=== PATIENT | female | born 1990 | race Caucasian/White ===

== ENCOUNTER → 2024-07-29 | Outpatient (CLI) | payer MEDICARE ==
[~2024-07-29] MED LIST: ARIP1TAB4 PO; BUSP5TA PO; ERGO500029 PO; FLUO-290 PO; HYDR-643 PO; OMEP-173 PO; SERT50TA29 PO
[2024-07-29 18:24] LABS: BASO # 0.1 10^3/uL (0.0-0.2); BASO % 1.2 % (0.0-1.0); EOS # 0.1 10^3/uL (0.0-0.5); EOS % 1.4 % (0.0-3.0); HEMATOCRIT 37.9 % (36.0-47.0); HEMOGLOBIN 12.6 g/dl (12.0-15.5); LYMPH # 1.8 10^3/uL (1.5-5.0); LYMPH % 23.1 % (24.0-44.0); MEAN CORPUSCULAR HEMOGLOBIN 28.7 pg (27.0-33.0); MEAN CORPUSCULAR HGB CONC 33.2 g/dl (32.0-36.5); MEAN CORPUSCULAR VOLUME 86.3 fl (80.0-96.0); MONO # 0.5 10^3/uL (0.0-0.8); MONO % 6.5 % (2.0-8.0); NEUTROPHILS # 5.1 10^3/uL (1.5-8.5); NEUTROPHILS % 67.4 % (36.0-66.0); PLATELET COUNT, AUTOMATED 356 10^3/uL (150-450); RED BLOOD COUNT 4.39 10^6/uL (4.00-5.40); WHITE BLOOD COUNT 7.6 10^3/uL (4.0-10.0)
[2024-07-29 18:29] LABS: C REACTIVE PROTEIN QUANTITATIV 1.11 MG/DL (<1.0); CPK CREATINE PHOSPHOKINASE 79 U/L (34-145)
[2024-07-29 18:30] LABS: ALBUMIN 3.6 G/DL (3.2-5.2); ALKALINE PHOSPHATASE 113 U/L (35-104); ALT/SGPT 21 U/L (7.0-40); AST/SGOT 17 U/L (<34); BILIRUBIN,TOTAL 0.4 MG/DL (0.3-1.2); BLOOD UREA NITROGEN 8 MG/DL (9-23); CARBON DIOXIDE LEVEL 30 MMOL/L (20-31); CHLORIDE LEVEL 103 MMOL/L (98-107); GLOMERULAR FILTRATION RATE > 60.0 (>60); GLUCOSE, FASTING 84 MG/DL (60-100); POTASSIUM SERUM 4.2 MMOL/L (3.5-5.1); SODIUM LEVEL 142 MMOL/L (136-145); TOTAL PROTEIN 6.8 G/DL (5.7-8.2)
[2024-07-29 18:31] LABS: FERRITIN 9.3 NG/ML (7.3-270.7)
[2024-07-29 18:32] LABS: FOLATE 22.4 NG/ML (>5.4); VITAMIN B12 LEVEL 349 PG/ML (211-911)
[2024-07-29 18:40] LABS: ERYTHROCYTE SEDIMENTATION RATE 11 mm/hr (0-20)
[2024-07-29 19:49] LABS: RHEUMATOID FACTOR QUANT < 3.5 IU/ML (<14)
[2024-07-31 10:29] LABS: DRVV SCREEN 31.9 SECONDS
[2024-07-31 10:41] LABS: PTT LUPUS TYPE ANTICOAG SCREEN 0.84 (0-1.20)
[2024-07-31 13:33] LABS: TRANSFERRIN 313 mg/dL (188-341)
[2024-07-31 15:48] LABS: ANA SCREEN, IFA NEGATIVE (NEGATIVE)
[2024-07-31 17:49] LABS: ANGIOTENSIN 1 CONVERTING ENZYM 42 U/L (9-67)
[2024-07-31 19:57] LABS: ALDOLASE 5.8 U/L (< OR = 8.1)
[2024-08-03 08:03] LABS: ALBUMIN SPEP 4.1 g/dL (3.8-4.8); ALPHA-1-GLOBULINS SO 0.4 g/dL (0.2-0.3); ALPHA-2-GLOBULINS SO 0.7 g/dL (0.5-0.9); BETA 2 GLOBULIN 0.4 g/dL (0.2-0.5); BETA-GLOBULIN SO 0.5 g/dL (0.4-0.6)
[2024-08-03 14:47] LABS: IgG P18 AB NON-REACTIVE; IgG P23 AB NON-REACTIVE; IgG P28 AB NON-REACTIVE; IgG P30 AB NON-REACTIVE; IgG P39 AB NON-REACTIVE; IgG P41 AB REACTIVE; IgG P45 AB NON-REACTIVE; IgG P58 AB NON-REACTIVE; IgG P66 AB NON-REACTIVE; IgG P93 AB NON-REACTIVE; IgM P23 AB NON-REACTIVE; IgM P39 AB NON-REACTIVE; IgM P41 AB NON-REACTIVE; LYME IgG WB INTERPRETATION NEGATIVE (NEGATIVE); LYME IgM WB INTERPRETATION NEGATIVE (NEGATIVE)
[2024-08-03 19:42] LABS: LYME TOTAL ANTIBODY CIA <= 0.90 Index (<=0.90)
[2024-08-03 20:02] LABS: VITAMIN K 219 pg/mL (130-1500)
== END ==
LOC: M PLALAB 13:25
PROVIDERS: ATTEND Psychiatry & Neurology Neurology
DX: M54.2 Cervicalgia (principal); M54.59 Other low back pain; G43.909 Migraine, unspecified, not intractable, without status migrainosus; D68.9 Coagulation defect, unspecified; G43.709 Chronic migraine without aura, not intractable, without status migrainosus
CPT/HCPCS: 36415; 80053; 82085; 82164; 82550; 82607; 82728; 82746; 84155; 84165; 84466; 84597; 85025; 85652; 85730; 86038; 86140; 86431; 86617; 86618; G0480